=== PATIENT | male | born 1955 | race American Indian/Alaskan Native ===

== ENCOUNTER 2018-11-07 10:03 | Emergency (ER) | payer MEDICARE ==
[2018-11-07] MEDS ORDERED: XYLOCAINE 2% INFILTRATI ONE ×2 (10:49→10:53)
[2018-11-07] MEDS ORDERED: BOOSTRIX IM ONE (10:50)
[2018-11-07] MEDS ORDERED: ANCEF IM ONE (10:50)
--- NOTE | 2018-11-07 10:52 | Emergency Department Report ---
ED Fall HPI - General Chief Complaint: Fall Stated Complaint: FALL/LACERATION Time Seen by Provider: 11/07/18 10:38 Source: patient Mode of arrival: Stretcher Limitations: No Limitations - History of Present Illness Initial Comments: Patient slipped and fell while trying to get out of the toilet seat. He struck the left side of his face in the process. He denies loss of consciousness. Patient also denies headache. Complaint: fall -: This morning Fall From: other (Getting out of the toilet seat.) When Fall Occurred: just prior to arrival Fall Witnessed: no Place Fall Occurred: longterm/SNF Loss of Consciousness: none Prolonged Down Time?: no Symptoms Prior to Fall: none, other (Slipped) Location: head, face Severity: mild Severity scale (0 -10): 0 Context: tripped/slipped Associated Symptoms: denies - Related Data Previous Rx's Medication Instructions Recorded Last Taken Type Bacitracin/Polymyxin B Sulfate 1 applic TP TID 10 Days #15 gram 11/07/18 Unknown Rx [Bacitracin-Polymyxin Ointment] cephALEXin [Keflex] 500 mg PO Q8HR #30 cap 11/07/18 Unknown Rx Allergies Allergy/AdvReac Type Severity Reaction Status Date / Time No Known Allergies Allergy Unverified 11/07/18 11:59 ED Review of Systems ROS: Stated complaint: FALL/LACERATION Other details as noted in HPI Comment: All other systems reviewed and negative Constitutional: denies: chills, fever Eyes: denies: eye pain, eye discharge, vision change ENT: denies: ear pain, throat pain Respiratory: denies: cough, shortness of breath, wheezing Cardiovascular: denies: chest pain, palpitations Endocrine: no symptoms reported Gastrointestinal: denies: abdominal pain, nausea, diarrhea Genitourinary: denies: urgency, dysuria Musculoskeletal: denies: back pain, joint swelling, arthralgia Skin: denies: rash, lesions Neurological: weakness (Residual Left sided weakness from prior stroke.). denies: headache, paresthesias Psychiatric: denies: anxiety, depression Hematological/Lymphatic: denies: easy bleeding, easy bruising ED Past Medical Hx - Medications Home Medications: Home Medications Medication Instructions Recorded Confirmed Last Taken Type Bacitracin/Polymyxin B Sulfate 1 applic TP TID 10 Days #15 gram 11/07/18 Unknown Rx [Bacitracin-Polymyxin Ointment] cephALEXin [Keflex] 500 mg PO Q8HR #30 cap 11/07/18 Unknown Rx ED Physical Exam - General Limitations: No Limitations General appearance: alert, in no apparent distress - Head Head exam: Present: other (Left eye lid 2.5 cm laceration.) - Eye Eye exam: Present: normal appearance, PERRL, EOMI. Absent: conjunctival injection Pupils: Present: normal accommodation - ENT ENT exam: Present: normal exam, normal orophraynx, mucous membranes moist - Neck Neck exam: Present: normal inspection, full ROM. Absent: tenderness, meningismus - Respiratory Respiratory exam: Present: normal lung sounds bilaterally - Cardiovascular Cardiovascular Exam: Present: regular rate, normal rhythm, normal heart sounds - GI/Abdominal GI/Abdominal exam: Present: soft, normal bowel sounds. Absent: distended, tend erness, guarding, rebound - Extremities Exam Extremities exam: Present: other (LUE contracture from stroke.) - Neurological Exam Neurological exam: Present: alert, altered, oriented X3 - Psychiatric Psychiatric exam: Present: normal affect, normal mood - Skin Skin exam: Present: warm, dry, intact ED Course Vital Signs 11/07/18 11/07/18 11/07/18 10:52 11:58 12:00 Temperature 98 F Pulse Rate 84 84 82 Respiratory 14 17 15 Rate Blood Pressure 119/78 137/81 130/79 O2 Sat by Pulse 98 98 98 Oximetry - Laceration /Wound Repair Left Face Wound Location: face Wound Length (cm): 3 Wound's Depth, Shape: superficial, linear Wound Explored: no foreign body removed Irrigated w/ Saline (ccs): 50 Betadine Prep?: No Anesthesia: 1% Lidocaine Volume Anesthetic (ccs): 2 Wound Repaired With: sutures Suture Size/Type: 5:0, proline Number of Sutures: 4 Layer Closure?: No Progress: Patient tolerated the procedure well without any complication. ED Medical Decision Making - Radiology Data Radiology results: report reviewed CT Head showed no acute findings. CT Facial bones showed a left nasal bone fracture. - Medical Decision Making Patient discharged back to the longterm with out patient ENT follow up. Critical care attestation.: If time is entered above; I have spent that time in minutes in the direct care of this critically ill patient, excluding procedure time. ED Disposition Clinical Impression: Fall Qualifiers: Encounter type: initial encounter Qualified Code(s): W19.XXXA - Unspecified fall, initial encounter Left eyelid laceration Qualifiers: Encounter type: initial encounter Qualified Code(s): S01.112A - Laceration without foreign body of left eyelid and periocular area, initial encounter Head injury Qualifiers: Encounter type: initial encounter Qualified Code(s): S09.90XA - Unspecified injury of head, initial encounter Fracture closed, nasal bone Qualifiers: Encounter type: initial encounter Qualified Code(s): S02.2XXA - Fracture of nasal bones, initial encounter for closed fracture Disposition: DC-01 TO HOME OR SELFCARE Is pt being admited?: No Does the pt Need Aspirin: No Condition: Stable Instructions: Suture Care (ED), Laceration (ED), Fall Prevention for Older Adults (ED), Minor Head Injury (ED) Additional Instructions: Please follow up with your regular doctor tomorrow morning. Return to the ED if your condition worsens. Prescriptions: Bacitracin/Polymyxin B Sulfate [Bacitracin-Polymyxin Ointment] 1 applic TP TID 10 Days #15 gram cephALEXin [Keflex] 500 mg PO Q8HR #30 cap Time of Disposition: 13:05
[2018-11-07] MEDS ORDERED: BACTROBAN 2% TP ONE (12:00)
--- NOTE | 2018-11-07 12:57 | Cat Scan Report ---
CT BRAIN: 11/07/2018 INDICATION / CLINICAL INFORMATION: MAIN: lt side Head injury fell this morning in the bathroom at home, . COMPARISON: 12/07/2010 FINDINGS: BRAIN/INTRACRANIAL STRUCTURES: Unenhanced CT images of the brain and a straight no evidence of acute intracranial abnormality. Ventricles and sulci are prominent in size, consistent with diffuse cerebral atrophy. The degree of a trophy has progressed when compared to the prior exam. There is evidence of encephalomalacia in the right subcortical white matter with surrounding edema, c onsistent with prior ischemic injury. This is an area of previous hemorrhagic change seen on a CT sca n from 12/07/2010. EXTRACRANIAL STRUCTURES: Unremarkable. IMPRESSION: No acute abnormality. Extensive chronic changes. All CT scans at this location are performed using dose reduction to ALARA by means of automated expos ure control. Signer Name: Marcel Prabhakar MD Signed: 11/07/2018 12:53 PM Workstation Name: [id number]
--- NOTE | 2018-11-07 13:00 | Cat Scan Report ---
FACIAL CT 11/07/2018 HISTORY: Trauma FINDINGS: CT images of the facial bones were obtained. Images are evaluated in the axial, coronal, an d sagittal planes. There is flattening and depression of the left nasal bones and nasal process of the left maxillary johana ne consistent with acute fracture. Overlying soft tissue swelling is present. Osseous structures are otherwise intact. Mild mucosal thickening is present in the right maxillary sinus. Orbital structures are intact. There is prominent soft tissue opacification of the external auditory canals, osseous portions. This usually as a result of cerumen impaction. IMPRESSION: Left nasal bone fractures. All CT scans at this location are performed using dose reduction to ALARA by means of automated expos ure control. Signer Name: Marcel Prabhakar MD Signed: 11/07/2018 12:55 PM Workstation Name: [id number]
[2018-11-07 13:16] VITALS: BP 130/79
== END 2018-11-07 14:38 | disposition home or self-care (01) ==
LOC: ED 10:03
DX: S02.2XXA Fracture of nasal bones, initial encounter for closed fracture (principal); S01.112A Laceration without foreign body of left eyelid and periocular area, initial encounter; Z79.899 Other long term (current) drug therapy; W01.0XXA Fall on same level from slipping, tripping and stumbling without subsequent striking against object, initial encounter; Y93.89 Activity, other specified; Y92.121 Bathroom in nursing home as the place of occurrence of the external cause; Y99.8 Other external cause status
CPT/HCPCS: 12013; 70450; 70486; 90471; 90715; 96372; 99284; J0690